=== PATIENT | male | born 1985 | race Caucasian/White ===

== ENCOUNTER 2018-03-24 19:42 | Emergency (ER) | payer OTHER ==
[2018-03-24 19:55] VITALS: BP 122/77
--- NOTE | 2018-03-24 19:57 | UC ---
Laceration HPI - HPI Summary HPI Summary: 32 male presents with b/l knee abrasions sustained about 20 min [employer]. He tells me that his dog got loose and he ran of him in the rain wearing sandals. Pt tripped and skid his knees across gravel. Sustained a severe abrasion to left knee and mild abrasion to right knee. He went inside and cleansed the wound and came to . Unsure date of last tetanus. - History Of Current Complaint Chief Complaint: UCLowerExtremity Stated Complaint: KNEE AND FOOT LACERATIONS Time Seen by Provider: 03/24/18 19:56 Hx Obtained From: Patient Laceration Location: Knee Mechanism Of Injury: Blunt Trauma Onset/Duration: Sudden Onset Severity: Mild Pain Intensity: 2 Pain Scale Used: 0-10 Numeric - Allergies/Home Medications Allergies/Adverse Reactions: Allergies Allergy/AdvReac Type Severity Reaction Status Date / Time No Known Allergies Allergy Verified 03/24/18 19:54 Home Medications: Home Medications Ibuprofen TAB* [Motrin TAB* 600 MG] 03/24/18 [History] Medical Marijuana 03/24/18 [History] PMH/Surg Hx/FS Hx/Imm Hx - Additional Past Medical History Additional PMH: None Previously Healthy: Yes - Surgical History Surgical History: Yes Surgery Procedure, Year, and Place: BILAT SHOULDER LABRUM REPAIR - Family History Known Family History: Positive: None - Social History Occupation: Employed Full-time Lives: With Family Alcohol Use: Weekly Alcohol Amount: 10 per week Substance Use Type: Marijuana, Prescribed Substance Use Comment - Amount & Last Used: medical marijuana Smoking Status (MU): Current Some Day Smoker Type: Cigars Amount Used/How Often: rarely - 1 per month Have You Smoked in the Last Year: Yes Household Exposure Type: Cigars Review of Systems Constitutional: Negative Skin: Other - Abrasions b/l knees Respiratory: Negative Cardiovascular: Negative Neurovascular: Negative Musculoskeletal: Negative Neurological: Negative Psychological: Negative All Other Systems Reviewed And Are Negative: Yes Physical Exam - Summary Physical Exam Summary: GENERAL: NAD. WDWN. No pain distress. SKIN: LEFT KNEE: Severe partial thickness abrasion to inferior knee overlying patellar tendon. Mild gravel FBs. Right knee: Mild superficial abrasion to medial knee. No FB appreciated. CHEST: No accessory muscle use. Breathing comfortably and in no distress. CV: . Pulses intact popliteal, PT, and DP. Brisk cap refill. MSK: FROM b/l knees NEURO: Alert. Sensations intact and symmetric B/L LEs PSYCH: Age appropriate behavior. Triage Information Reviewed: Yes Vital Signs: Initial Vital Signs Temp 98 F 03/24/18 19:45 Pulse 58 03/24/18 19:45 Resp 16 03/24/18 19:45 BP 122/77 03/24/18 19:45 Pulse Ox 100 03/24/18 19:45 Vital Signs Reviewed: Yes Laceration Course/Dx - Course/Dx Course Of Treatment: The knees were copiously irrigated with NS focusing on the left (more severe). Scrub brush was used to debride. tdap updated. Left knee bandaged with xeroform and telfa. Advised to change dressing daily until well healed. - Differential Dx - Laceration/Wound Provider Diagnoses: B/l knee abrasions Discharge - Sign-Out/Discharge Documenting (check all that apply): Patient Departure - Discharge Plan Condition: Stable Disposition: HOME Patient Education Materials: Abrasion (ED) Referrals: Stewart Fox MD [Primary Care Provider] - Additional Instructions: If you develop a fever, shortness of breath, chest pain, new or worsening symptoms - please call your PCP or go to the ED. 1) Please change the dressing daily - Billing Disposition and Condition Condition: STABLE Disposition: Home
[2018-03-24] MEDS ORDERED: Tetan/Diph/Pertus SYR(Tdap)* 0.5 ML SYR(BOOSTRIX) use SYR IM ONE (19:58)
== END 2018-03-24 20:25 | disposition home or self-care (01) ==
LOC: UCEAST 19:42
DX: S80.212A Abrasion, left knee, initial encounter (principal); S80.211A Abrasion, right knee, initial encounter; W01.0XXA Fall on same level from slipping, tripping and stumbling without subsequent striking against object, initial encounter; Y93.89 Activity, other specified; Y92.9 Unspecified place or not applicable; Z23 Encounter for immunization; Z72.0 Tobacco use
CPT/HCPCS: 90715; 99212; G0463

== ENCOUNTER 2018-12-30 13:18 | Emergency (ER) | payer OTHER ==
[2018-12-30 13:46] VITALS: BP 123/75
--- NOTE | 2018-12-30 13:50 | UC ---
Abdominal Pain Male HPI - HPI Summary HPI Summary: 33 yo male presents with abdominal pain. He tells me that around 0400 this morning he woke up with cramping and burning around his belly button and epigastrum. Discomfort has persisted since that time. He feels nauseous, but has not vomited. He tells me that his diet over the last few days has been a lot of fried foods, burgers, and beer/alcohol. He has also been doing a lot of belching today. He took pepto bismol earlier this morning with no change in his symptoms. He ate breakfast and lunch with no change in his symptoms. Denies SOB , chest pain/palpitations, dysuria. Last BM was this morning and was normal. Denies blood in stool. - History of Current Complaint Chief Complaint: UCAbdominalPain Stated Complaint: ABD PAIN Time Seen by Provider: 12/30/18 13:50 Hx Obtained From: Patient Onset/Duration: Sudden Onset Severity Initially: Moderate Severity Currently: Moderate Pain Intensity: 6 Pain Scale Used: 0-10 Numeric - Allergies/Home Medications Allergies/Adverse Reactions: Allergies Allergy/AdvReac Type Severity Reaction Status Date / Time No Known Allergies Allergy Verified 12/30/18 13:46 PMH/Surg Hx/FS Hx/Imm Hx - Additional Past Medical History Additional PMH: None - Surgical History Surgical History: Yes Surgery Procedure, Year, and Place: BILAT SHOULDER LABRUM REPAIR - Family History Known Family History: Positive: None - Social History Lives: With Family Alcohol Use: Weekly Alcohol Amount: 10 per week Substance Use Type: Marijuana Substance Use Comment - Amount & Last Used: daily Smoking Status (MU): Current Some Day Smoker Type: Cigars Amount Used/How Often: rarely - 1 per month Have You Smoked in the Last Year: Yes Household Exposure Type: Cigars Review of Systems All Other Systems Reviewed And Are Negative: Yes Constitutional: Positive: Negative Skin: Positive: Negative Eyes: Positive: Negative ENT: Positive: Negative Respiratory: Positive: Negative Cardiovascular: Positive: Negative Gastrointestinal: Positive: Abdominal Pain, Nausea Genitourinary: Positive: Negative Neurovascular: Positive: Negative Musculoskeletal: Positive: Negative Neurological: Positive: Negative Psychological: Positive: Negative Physical Exam - Summary Physical Exam Summary: GENERAL: NAD. WDWN. No pain distress. SKIN: No rashes, sores, lesions, or open wounds. NECK: Supple. Nontender. No lymphadenopathy. CHEST: CTAB. No r/r/w. No accessory muscle use. Breathing comfortably and in no distress. CV: RRR. Without m/r/g. Pulses intact. Cap refill <2seconds ABDOMEN: Soft. NTTP. No distention or guarding. No organomegaly. No CVA tenderness. Bowel sounds present. Neg ta sign. No mcburny point tenderness. Negative psoas or rovsing's. NEURO: Alert. PSYCH: Age appropriate behavior. Triage Information Reviewed: Yes Vital Signs: Initial Vital Signs Temp 98.6 F 12/30/18 13:43 Pulse 75 12/30/18 13:43 Resp 18 12/30/18 13:43 BP 123/75 12/30/18 13:43 Pulse Ox 100 12/30/18 13:43 Vital Signs Reviewed: Yes Abd Pain Male Course/Dx - Course Course Of Treatment: I suspect he has some degree of gastritis due to recent poor diet and excess alcohol intake. In the clinic, pt was given GI cocktail and pepcid. He was observed for about 25 minutes and, on re-eval, reported feeling slightly improved with less belching and burning, but still felt nauseous. Will rx for zofran and omeprazole. Strongly encouraged that if he develops vomiting, worsening pain, or fever to go to the ER immediately. He voiced understanding and agrees with the plan. - Differential Dx/Clinical Impression Provider Diagnosis: Gastritis Discharge - Sign-Out/Discharge Documenting (check all that apply): Patient Departure All imaging exams completed and their final reports reviewed: No Studies - Discharge Plan Condition: Stable Disposition: HOME Prescriptions: Omeprazole 20 mg PO DAILY #14 capsule. Ondansetron ODT TAB* [Zofran 4 MG Odt TAB*] 4 mg PO Q8H PRN #9 tab.odt PRN Reason: Nausea Patient Education Materials: Gastritis (ED), Diet for Stomach Ulcers and Gastritis (ED) Referrals: Stewart Fox MD [Primary Care Provider] - Additional Instructions: If you develop a fever, worsening abdominal discomfort, shortness of breath, chest pain, new or worsening symptoms - please go to the ED immediately. - Billing Disposition and Condition Condition: STABLE Disposition: Home
[2018-12-30] MEDS ORDERED: Famotidine TAB* 20 MG PO ONE (14:14)
[2018-12-30] MEDS ORDERED: Lidocaine 2% VISCOUS* 15 ML UDC PO ONE (14:15)
[2018-12-30] MEDS ORDERED: Al Hydrox/Mg Hydrox/Simet LIQ* 30 ML UDC PO ONE (14:15)
== END 2018-12-30 15:05 | disposition home or self-care (01) ==
LOC: UCEAST 13:18
DX: K29.70 Gastritis, unspecified, without bleeding (principal); F17.210 Nicotine dependence, cigarettes, uncomplicated
CPT/HCPCS: 99212; A9270-GY; G0463